=== PATIENT | female | born 1995 ===

== ENCOUNTER 2018-08-08 17:42 | Emergency (ER) | payer OTHER ==
[2018-08-08 17:49] VITALS: BP 103/64
[2018-08-08] MEDS ORDERED: [UNRECOGNIZED DRUG - OTHER] (17:51)
[2018-08-08] MEDS ORDERED: DOCU-416 PO (17:51)
[2018-08-08] MEDS ORDERED: CITA-145 PO (17:51)
[2018-08-08] MEDS ORDERED: FLUT16SP19 NS (17:51)
--- NOTE | 2018-08-08 17:54 | ER Report ---
History and Physical Time Seen By MD: 17:54 Hx. of Stated Complaint: congestion since thursday HPI/ROS CHIEF COMPLAINT: Congestion, vomiting and diarrhea HISTORY OF PRESENT ILLNESS: 23-year-old black female presents ambulatory to the ER complaining of vomiting and diarrhea for 2-3 days. The vomiting stopped. She now has some nasal congestion and a cough. She describes chills but no subjective fevers. She works at a school. She denies exposure to ill contacts. She notes no recent antibiotic use. She does admit to history of IBS. She notes no mucous or blood in the diarrhea. She denies recent travel. REVIEW OF SYSTEMS: Respiratory: No cough, no dyspnea. Cardiovascular: No chest pain, no palpitations. Gastrointestinal: As above Musculoskeletal: No back pain. Allergies: Coded Allergies: codeine (Verified Allergy, Mild, n/v, 08/08/18) Home Meds Active Scripts Ondansetron Hcl (ZOFRAN) 4 Mg Tablet, 4 MG PO Q6H PRN for NAUSEA/VOMITING, #15 Prov:CRISTHIAN GILMORE DO 08/08/18 Reported Medications Docusate Sodium (COLACE) 100 Mg Capsule, 100 MG PO BID, CAPSULE 08/08/18 Fluticasone Prop 50 Mcg Ns (FLONASE 50 MCG NS) 16 Gm [place].susp, 2 SPRAYS NS QDAY, BOT 08/08/18 [progesterone BC] No Conflict Check 08/08/18 Citalopram Hydrobromide (CITALOPRAM HBR) 20 Mg Tablet, 20 MG PO QDAY, #5 TAB 08/08/18 Reviewed Nurses Notes: Yes Old Medical Records Reviewed: Yes Constitutional Vital Sign - Last 24 Hours 08/08/18 17:49 Temp 98.9 Pulse 94 Resp 18 B/P (MAP) 103/64 Pulse Ox 94 O2 Delivery Room Air Physical Exam General Appearance: The patient is alert, has no immediate need for airway protection and no current signs of toxicity. Vital signs stable, afebrile, pulse ox normal HEENT: Pupils equal and round no injection. TMs normal, oropharynx without redness or exudate, mucous. Membranes are moist Respiratory: Chest is non tender, lungs are clear to auscultation. Cardiac: regular rate and rhythm Gastrointestinal: Abdomen is soft and non tender, no masses, bowel sounds normal. Musculoskeletal: Neck: Neck is supple and non tender. No lymphadenopathy Extremities have full range of motion and are non tender. No edema or calf tenderness Skin: No rashes or lesions. DIFFERENTIAL DIAGNOSIS: After history and physical exam differential diagnosis was considered for abdominal pain including but not limited to appendicitis, cholecystitis, gastritis, gastroenteritis, food poisoning and urinary tract infection. Additionally, aspiration, sinusitis, viral syndrome, Medical Decision Making ED Course/Re-evaluation ED Course Patient was admitted to an examination room. H&P was done. The differential diagnoses was considered. Patient's initial presentation was diarrhea which subsequently developed vomiting. She now has some respiratory congestion and some nasal congestion. I suspect a result of aspiration from her vomiting episodes. Patient continues to have diarrhea and lower abdominal cramps and nausea. Signs are stable. She is afebrile. She has no blood or mucus in the diarrhea to suggest infectious etiology. 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 She is advised to conservative treatment plan of clear liquid diet for 24-48 hours, advancing to a [place] diet. She'll be given a prescription for Zofran for management of her nausea. She is advised [id number] symptomatically management with Advil, DayQuil and ibuprofen. She is advised to follow-up with primary care if unimproved in 3-5 days. Decision to Disposition Date: Aug 08, 2018 Decision to Disposition Time: 18:01 Depart Departure Latest Vital Signs Vital Signs Date Time Temp Pulse Resp B/P (MAP) Pulse Ox O2 Delivery O2 Flow Rate FiO2 08/08/18 17:49 98.9 94 18 103/64 94 Room Air Impression: Primary Impression: Gastroenteritis Additional Impression: Upper respiratory infection Condition: Improved Disposition: HOME OR SELF-CARE New Scripts Ondansetron Hcl (ZOFRAN) 4 Mg Tablet 4 MG PO Q6H PRN for NAUSEA/VOMITING, #15 Prov: MANDOCRISTHIAN Wiggins DO 08/08/18 Patient Instructions: Clear Liquid Diet (ED), Gastroenteritis (ED), Upper Respiratory Infection (ED) Additional Instructions: Follow clear liquid diet for 24-48 hours and advance to [place] diet, bananas, rice, applesauce and toast Avoid fatty food, greasy foods, vegetables and dairy for 48 hours Take ibuprofen 200 mg 3 tablets 3 times a day Use DayQuil and NyQuil as needed for upper respiratory symptom control Follow-up with your primary care if unimproved in 3-5 days Problem Qualifiers Additional Impression: Upper respiratory infection URI type: unspecified URI Qualified Codes: J06.9 - Acute upper respiratory infection, unspecified CRISTHIAN GILMORE DO Aug 08, 2018 17:54
[2018-08-08] MEDS ORDERED: ONDA4TAB97 PO (18:05)
[2018-08-08] MEDS ORDERED: ONDANSETRON 4 MG ODT TH SL ONE (18:05)
== END 2018-08-08 18:15 | disposition home or self-care (01) ==
LOC: ER 17:42
DX: K52.9 Noninfective gastroenteritis and colitis, unspecified (principal); J06.9 Acute upper respiratory infection, unspecified
CPT/HCPCS: 99282; S0119